=== PATIENT | male | born 1965 | race Caucasian/White ===

== ENCOUNTER 2019-09-05 09:50 | Emergency (ER) | payer SELFPAY ==
[~2019-09-05] VITALS: Ht 170.2 cm; Wt 86.2 kg
[2019-09-05 09:52] VITALS: BP 128/80; Ht 170.2 cm; Wt 86.2 kg
== END 2019-09-05 10:53 | disposition home or self-care (01) ==
LOC: ED 09:50 → EDBD 09:50 → ED 10:53
DX: T78.3XXA Angioneurotic edema, initial encounter (principal)